=== PATIENT | female | born 1995 | race Caucasian/White ===

== ENCOUNTER 2017-02-06 12:44 | Emergency (ER) | payer MEDICAID, OTHER ==
[~2017-02-06] VITALS: Ht 162.6 cm; Wt 82.0 kg
[2017-02-06] MEDS ORDERED: LORAZEPAM 1MG TABLET PO ONE (13:45)
[2017-02-06 14:36] VITALS: BP 133/75
== END 2017-02-06 14:39 | disposition home or self-care (01) ==
LOC: ER 13:45
DX: F41.9 Anxiety disorder, unspecified (principal); Z88.0 Allergy status to penicillin
CPT/HCPCS: 81025; 93005; 99284

== ENCOUNTER 2017-02-08 09:10 | Emergency (ER) | payer MEDICAID, OTHER ==
[~2017-02-08] VITALS: Ht 165.1 cm; Wt 80.0 kg
[2017-02-08] MEDS ORDERED: LORAZEPAM 1MG TABLET PO ONE (11:30)
[2017-02-08 12:34] VITALS: BP 125/75
== END 2017-02-08 14:25 | disposition home or self-care (01) ==
LOC: ER 09:21
DX: F41.0 Panic disorder [episodic paroxysmal anxiety] (principal); R07.89 Other chest pain; Z88.0 Allergy status to penicillin
CPT/HCPCS: 71010; 81025; 93005; 99284